=== PATIENT | female | born 1945 ===

== ENCOUNTER 2016-11-18 02:40 | Emergency (ER) | payer MEDICARE, OTHER ==
[2016-11-18 02:45] VITALS: BP 128/52; PULSE 100; RESP 20; TEMP 98.5; O2SAT 96; BMI 71.3
--- NOTE | 2016-11-18 03:11 | ED PDOC ---
Lower Extremity Pain/Injury Time Seen by Provider: 11/18/16 02:48 Chief Complaint (Nursing): Lower Extremity Problem/Injury Chief Complaint (Provider): KNee pain History Per: Patient, Family Additional Complaint(s): Pt is a 71 yo female presents with right knee pain x several months now, worse upon ambulation. Pt taking Ultracet for pain with minimal relief. Past Medical History Reviewed: Nursing Documentation, Vital Signs Vital Signs: Last Vital Signs Temp 98.5 F 11/18/16 03:00 Pulse 100 H 11/18/16 03:00 Resp 20 11/18/16 03:00 BP 128/52 L 11/18/16 03:00 Pulse Ox 96 11/18/16 03:00 - Medical History PMH: Hiatal Hernia, HTN - Family History Family History: States: Unknown Family Hx - Living Arrangements Living Arrangements: With Family - Social History Current smoker - smoking cessation education provided: No Alcohol: None Drugs: Denies - Home Medications Home Medications: Ambulatory Orders Medication Instructions Recorded Ibuprofen [Motrin] 600 mg PO Q6 #20 tab 11/18/16 traMADol [Ultram] 50 mg PO Q6 #10 tab 11/18/16 - Allergies Allergies/Adverse Reactions: Allergies Allergy/AdvReac Type Severity Reaction Status Date / Time No Known Allergies Allergy Verified 11/18/16 03:03 Review of Systems ROS Statement: Except As Marked, All Systems Reviewed And Found Negative Musculoskeletal: Positive for: Other (knee pain) Physical Exam - Reviewed Nursing Documentation Reviewed: Yes Vital Signs Reviewed: Yes - Physical Exam Appears: Positive for: Non-toxic, No Acute Distress, Uncomfortable Head Exam: Positive for: ATRAUMATIC, NORMAL INSPECTION, NORMOCEPHALIC Skin: Positive for: Normal Color, Warm, DRY Eye Exam: Positive for: EOMI, Normal appearance, PERRL ENT: Positive for: Normal ENT Inspection Neck: Positive for: Normal, Painless ROM Cardiovascular/Chest: Positive for: Regular Rate, Rhythm Respiratory: Positive for: CNT, Normal Breath Sounds Gastrointestinal/Abdominal: Positive for: Normal Exam, Bowel Sounds, Soft Back: Positive for: Normal Inspection Extremity: Positive for: Normal ROM Neurologic/Psych: Positive for: Alert, Oriented - ECG O2 Sat by Pulse Oximetry: 96 Medical Decision Making Medical Decision Making: XR: Severe DJD, as read by TERESE pt medicated with 60 mg IM injection of Toradol, referred to ortho Disposition - Clinical Impression Clinical Impression: Knee pain, DJD (degenerative joint disease) - Patient ED Disposition Is Patient to be Admitted: No - Disposition Referrals: Sean Red MD [Primary Care Provider] - Terrence Platt III, MD [Staff Provider] - Disposition: Routine/Home Disposition Time: 04:32 Condition: STABLE Prescriptions: Ibuprofen [Motrin] 600 mg PO Q6 #20 tab traMADol [Ultram] 50 mg PO Q6 #10 tab Instructions: Knee Pain (ED) Forms: [facility] (Yoruba)
--- NOTE | 2016-11-18 08:20 | RAD ---
PROCEDURE: Right Knee Radiographs. HISTORY: Pain. No history of recent/ related trauma provided COMPARISON: 05/14/2011. FINDINGS: BONES: No acute fractures. Proliferative hypertrophic changes emanating from the femoral condyle and tibial plateau JOINTS: Severe tricompartmental degenerative change. Progressive compared to the prior study particularly as it relates to findings in the lateral compartment. JOINT EFFUSION: None. OTHER FINDINGS: None. IMPRESSION: Worsening tricompartmental degenerative change. No preliminary report provided by emergency department personnel.
== END 2016-11-18 04:47 | disposition home or self-care (01) ==
LOC: H.ER 02:40
DX: M17.11 Unilateral primary osteoarthritis, right knee (principal); I10 Essential (primary) hypertension
CPT/HCPCS: 73564; 96372; 99282; J1885